=== PATIENT | female | born 1990 | race African-American/Black ===

== ENCOUNTER → 2022-07-19 | Outpatient (CLI) | payer OTHER ==
[~2022-07-19] MED LIST: PROHANCE 279.3MG/ML 5ML VIAL ONE
== END ==
LOC: M PLAIMG 14:49
PROVIDERS: ATTEND Family Medicine
DX: E22.1 Hyperprolactinemia (principal); D49.7 Neoplasm of unspecified behavior of endocrine glands and other parts of nervous system
CPT/HCPCS: 70553; A9576

== ENCOUNTER → 2023-01-17 | Outpatient (CLI) | payer OTHER | LOC: M PLARAD 09:54 | PROVIDERS: ATTEND Family Medicine | DX: Z02.9 Encounter for administrative examinations, unspecified (principal) ==